=== PATIENT | female | born 1995 | race Caucasian/White ===

== ENCOUNTER 2016-09-05 21:02 | Emergency (ER) | payer MEDICAID, OTHER ==
[~2016-09-05] VITALS: Ht 157.5 cm; Wt 73.1 kg
[~2016-09-05 21:02] MED LIST: LORTA5 PO; TAMS0.4C67 PO; Z.0.BCPILL PO; ZOFR4TAB3 SL
[2016-09-05 21:14] VITALS: BP 117/61; PULSE 88; RESP 16; TEMP 99.3; O2SAT 100
[2016-09-05] MEDS ORDERED: KETOROLAC TROMETHAMINE 30 MG/ML (IVP) VIAL IV PUSH ONE (21:45)
[2016-09-05] MEDS ORDERED: SODIUM CHLORIDE 0.9% FLUSH 10 ML FLUSH IV FLUSH PRN (21:45)
--- NOTE | 2016-09-05 21:50 | PD ---
HPI Chief Complaint: Abdominal Pain Time Seen by Provider: 21:36 Travel History International Travel<30 days: No Contact w/Intl Traveler<30days: No Traveled to known affect area: No History of Present Illness HPI 21-year-old female presents to the emergency department for complaint of one hour of sudden onset right groin pain with radiation into the right lower extremity but also some right flank pain. Patient states that she has felt well all day has had no recent febrile illness respiratory illness urinary symptoms abdominal pain abnormal menses and no recent injury or fall. Patient states that she was lying on the kitchen floor which she typically does was feeling well had gotten up to go the bathroom and upon returning from the bathroom started noticing a pressure like discomfort in the groin area. Patient states his pain has increased in intensity. Patient states she has significant pain with range of motion of the right hip radiating into the right lower extremity and right flank. Patient now reports that she feels like pain as moving over to the left lower extremity. Patient states intermittently she' s experienced some mild tingling. Patient denies any previous injury to the back although parents report that when she was younger she was involved in gymnastics and had had a fall from a pogo stick injuring her buttock region remotely. Patient does not report any fever chills nausea vomiting cough congestion shortness of breath chest pain left flank pain generalized abdominal pain dysuria frequency urgency hematuria or vaginal bleeding vaginal discharge or lower extremity pain or swelling redness pallor or coolness. Patient has taken no medications prior to arrival to the emergency department. Patient reports she was just up out of the ED exam bed to obtain a urine specimen and was able to ambulate to the exam bed. Patient rates pain 8/10 intensity. Remaining still provided some relief movement exacerbates pain. Patient's had no recent respiratory or febrile illness or viral syndrome and has been taking no recent antibiotic. [facility] Past Medical History Narrative Medical ADHD nephrolithiasis; no surgery; no tobacco use; nursing notes reviewed Medical History: Denies Significant Hx ADHD: Yes Diminished Hearing: No Immunizations Current: Yes Tetanus Vaccination: Unknown Influenza Vaccination: No ?: Unknown LMP: 08 23 2016 Past Surgical History Surgical History: No Previous Surgery Social History Alcohol Use: No Tobacco Use: No Substance Use: No Allergies-Medications (Allergen,Severity, Reaction): Coded Allergies: No Known Allergies (Verified , 01/06/15) Reported Meds & Prescriptions Reported Meds & Active Scripts Active Zofran ODT (Ondansetron HCl) 4 Mg Tab 4 Mg SL Q6H PRN FOR NAUSEA/VOMITING Flomax (Tamsulosin HCl) 0.4 Mg Cap 0.4 Mg PO DAILY [place] 5/325 (Hydrocodone/Acetaminophen 5/325) 5 mg/325 mg Tab 1 Tab PO Q6H PRN Reported Control Pills (Miscellaneous Medication) Tab 1 Applic PO DAILY Review of Systems Except as stated in HPI: all other systems reviewed are Neg General / Constitutional: No: Fever, Chills HENT: No: Congestion Cardiovascular: No: Chest Pain or Discomfort, Edema Respiratory: No: Shortness of Breath Gastrointestinal: No: Nausea, Vomiting, Diarrhea, Abdominal Pain Genitourinary: Positive: Flank Pain, No: Dysuria, Discharge, Vaginal Bleeding Musculoskeletal: Positive: Myalgias, Arthralgias, Limited ROM (right hip), Pain (right hip groin RLE), No: Weakness, Cramping, Edema Skin: No Rash Neurologic: No: Weakness, Focal Abnormalities, Coordination Problem, Paresthesia Psychiatric: No: Anxiety Endocrine: No: Heat Intolerance Hematologic/Lymphatic: No: Lymph Node Enlargement Physical Exam Narrative GENERAL: Well-developed well-nourished female in no acute distress no respiratory distress. SKIN: Warm and dry. HEAD: Normocephalic. EYES: No scleral icterus. No injection or drainage. NECK: Supple, trachea midline. No JVD or lymphadenopathy. CARDIOVASCULAR: Regular rate and rhythm without murmurs, gallops, or rubs. RESPIRATORY: Breath sounds equal bilaterally. No accessory muscle use. GASTROINTESTINAL: Abdomen soft, non-tender, nondistended. MUSCULOSKELETAL: No cyanosis, or edema. Bilateral radial and dorsalis pedis pulses 2+ to palpation. Capillary refill brisk and less than 2 seconds per digit. Feet are pink warm and dry no pallor no coolness no erythema no edema. Patient is able to demonstrate full range of motion of the left lower extremity with hip flexion/extension, abduction/adduction, internal/external rotation knee flexion extension and intact range of motion of the ankle with intact plantar flexion and dorsiflexion. Patient with limited range of motion of right hip with decreased hip extension secondary to pain and increased pain with attempted internal/external rotation abduction and abduction not attempted. BACK: Nontender without obvious deformity. No CVA tenderness. No flank tenderness to palpation. Data Data Last Documented VS Vital Signs Date Time Temp Pulse Resp B/P Pulse Ox O2 Delivery O2 Flow Rate FiO2 09/05/16 21:14 99.3 88 16 117/61 100 Room Air Orders Complete Blood Count With Diff (09/05/16 21:39) Comprehensive Metabolic Panel (09/05/16 21:39) Urinalysis - C+S If Indicated (09/05/16 21:39) Iv Access Insert/Monitor (09/05/16 21:39) Ecg Monitoring (09/05/16 21:39) Oximetry (09/05/16 21:39) Sodium Chloride 0.9% Flush (Ns Flush) (09/05/16 21:45) Ed Urine Pregnancytest Poc (09/05/16 21:39) Ketorolac Inj (Toradol Inj) (09/05/16 21:45) Hip, Uni(Ap&Lat) W Ap Pelvis (09/05/16 ) Urine Culture (09/05/16 21:45) Labs Laboratory Tests Test 09/05/16 09/05/16 21:45 22:00 Urine Color YELLOW Urine Turbidity SLIGHT Urine pH 5.5 Urine Specific [place] 1.028 Urine Protein NEG mg/dL Urine Glucose (UA) NEG mg/dL Urine Ketones NEG mg/dL Urine Occult Blood TRACE Urine Nitrite NEG Urine Bilirubin NEG Urine Leukocyte Esterase SMALL Urine RBC 3-5 /hpf Urine WBC 25-49 /hpf Urine WBC Clumps FEW Urine Squamous Epithelial > 8 /hpf Cells Urine Bacteria MOD /hpf Microscopic Urinalysis Comment CULTURE INDICATED White Blood Count 10.4 TH/MM3 Red Blood Count 4.61 MIL/MM3 Hemoglobin 12.5 GM/DL Hematocrit 37.2 % Mean Corpuscular Volume 80.6 FL Mean Corpuscular Hemoglobin 27.2 PG Mean Corpuscular Hemoglobin 33.7 % Concent Red Cell Distribution Width 14.6 % Platelet Count 221 TH/MM3 Mean Platelet Volume 10.2 FL Neutrophils (%) (Auto) 58.4 % Lymphocytes (%) (Auto) 32.5 % Monocytes (%) (Auto) 6.7 % Eosinophils (%) (Auto) 0.8 % Basophils (%) (Auto) 1.6 % Neutrophils # (Auto) 6.0 TH/MM3 Lymphocytes # (Auto) 3.4 TH/MM3 Monocytes # (Auto) 0.7 TH/MM3 Eosinophils # (Auto) 0.1 TH/MM3 Basophils # (Auto) 0.2 TH/MM3 CBC Comment DIFF FINAL Differential Comment Sodium Level 140 MEQ/L Potassium Level 3.6 MEQ/L Chloride Level 106 MEQ/L Carbon Dioxide Level 26.3 MEQ/L Anion Gap 8 MEQ/L Blood Urea Nitrogen 16 MG/DL Creatinine 0.80 MG/DL Estimat Glomerular Filtration 91 ML/MIN Rate Random Glucose 91 MG/DL Calcium Level 9.5 MG/DL Total Bilirubin 0.3 MG/DL Aspartate Amino Transf 20 U/L (AST/SGOT) Alanine Aminotransferase 16 U/L (ALT/SGPT) Alkaline Phosphatase 91 U/L Total Protein 8.5 GM/DL Albumin 4.4 GM/DL MDM Medical Decision Making Medical Screen Exam Complete: Yes Emergency Medical Condition: Yes Medical Record Reviewed: Yes Interpretation(s) poc hcg: negative UA positive white blood cells clumped white blood cells many bacteria cultures indicated Last Impressions Hip and Pelvis X-Ray 09/05/16 0000 Signed Impressions: Service Date/Time: August 21:46 - CONCLUSION: No acute disease. Saul Miranda MD CBC & BMP Diagram 09/05/16 22:00 Vital Signs Date Time Temp Pulse Resp B/P Pulse Ox O2 Delivery O2 Flow Rate FiO2 09/05/16 21:14 99.3 88 16 117/61 100 Room Air Differential Diagnosis Tendinitis, bursitis, piriformis syndrome, lumbar radiculopathy, fracture, sprain, atypical nephrolithiasis, also to consider septic arthritis, ruptured ovarian cyst Narrative Course At 10:45 PM patient is clinically much improved able to demonstrate hip flexion extension and abduction and abduction and internal/external rotation and full range of motion at knee and ankle distally extremity is neurovascular tendon intact negative straight-leg raising. Abdomen soft nontender no guarding or rebound. Patient is identified to have urinary tract infection and possible early pyelonephritis. Suspect patient has right hip strain also consider piriformis syndrome. Patient has had marked improvement with one-time dose of Toradol 30 mg IV patient given first dose of oral antibiotic Cipro 500 mg by mouth and encouraged to follow-up with her primary care provider. Patient also be given prescription for Cipro as well as prescription for Robaxin and weight- based ibuprofen. Patient and family at bedside aware of lab results and imaging study which reveals no acute abnormalities. At this time further imaging is not indicated however patient may require further study at a later date such as CT or MRI should symptoms persist. Patient's questions answered to her satisfaction and patient is stable for outpatient management. Diagnosis Primary Impression: Hip pain, right Additional Impression: UTI (urinary tract infection) Qualified Code: N39.0 - Urinary tract infection without hematuria, site unspecified Referrals: Primary Care Physician call for appointment Patient Instructions: General Instructions Additional Instructions: Complete course of antibiotic as prescribed Take acetaminophen/Tylenol as often as every 4-6 hours as needed for fever 100.4 F or greater or for minor pain May use high-dose ibuprofen 800 mg as often as every 8 hours for pain greater than 5/10 intensity avoid prolonged use for greater than 2-3 days May use muscle relaxant as prescribed as needed use with caution and be aware that it may delay reaction time impaired judgment and increased risk for fall do not drive or handle heavy equipment while taking this medication do not combine with other medications or alcohol and do not climb heights or swelling while on this medication Use ice intermittently to hip area for the first 12-24 hours then apply moist heat Follow-up with primary care provider call office in a.m. to schedule appointment No work times one day Return to the emergency department for any concerns or change in condition Med/Other Pt SpecificInfo: Prescription(s) given Scripts Ciprofloxacin (Cipro)500 Mg [id number] Mg PO BID 7 Days Ref 0 Prov:Gaby Plunkett MD 09/05/16 Ibuprofen 800 Mg [id number] Mg PO Q8H PRN (PAIN GREATER THAN 5) #10 TAB Ref 0 Prov:Gaby Plunkett MD 09/05/16 Methocarbamol (Robaxin)750 Mg [id number] Mg PO Q6HR #12 TAB Ref 0 Prov:Gaby Plunkett MD 09/05/16 Disposition: 01 DISCHARGE HOME Condition: Stable Gaby Plunkett MD Sep 05, 2016 21:49
[2016-09-05 21:51] LABS: BLOOD, URINE TRACE (NEG); GLUCOSE,URINE NEG (NEG); KETONE, URINE NEG (NEG); NITRITE,URINE NEG (NEG); PH, URINE 5.5 (5.0-8.5)
[2016-09-05 21:55] LABS: URINE COLOR YELLOW (YELLW/STRAW)
[2016-09-05 21:56] LABS: BACTERIA, URINE MOD /hpf; COMMENT (UR) CULTURE INDICATED; CULTURE IF INDICATED CULTURE INDICATED; SQUAMOUS EPITHELIAL CELL URINE > 8 /hpf (0-5)
[2016-09-05 22:08] LABS: BASOPHIL # 0.2 TH/MM3 (0-0.2); BASOPHIL % 1.6 % (0.0-2.0); EOSINOPHIL # 0.1 TH/MM3 (0-0.4); EOSINOPHIL % 0.8 % (0.0-4.0); HEMATOCRIT 37.2 % (35.0-46.0); HEMO FLAGS DIFF FINAL; LYMPH % 32.5 % (9.0-44.0); LYMPHOCYTE # 3.4 TH/MM3 (1.0-4.8); MEAN CELL VOLUME 80.6 FL (80.0-100.0); MEAN CORPUSCULAR HEMOGLOBIN 27.2 PG (27.0-34.0); MEAN CORPUSCULAR HGB CONC 33.7 % (32.0-36.0); MONO % 6.7 % (0.0-8.0); NEUT % 58.4 % (16.0-70.0); PLATELET COUNT 221 TH/MM3 (150-450); RED BLOOD COUNT 4.61 MIL/MM3 (4.00-5.30); RED CELL DISTRIBUTION WIDTH 14.6 % (11.6-17.2); WHITE BLOOD COUNT 10.4 TH/MM3 (4.0-11.0)
[2016-09-05 22:20] LABS: CHLORIDE 106 MEQ/L (98-107); POTASSIUM 3.6 MEQ/L (3.5-5.1); SODIUM (NA) 140 MEQ/L (136-145)
--- NOTE | 2016-09-05 22:21 | RADHPO ---
EXAM DATE/TIME: 09/05/2016 21:46 [facility] COMPARISON: No previous studies available for comparison. INDICATIONS : Complains of right hip pain, after getting up off floor after playing with her dog. MEDICAL HISTORY : None. SURGICAL HISTORY : None. ENCOUNTER: Initial ACUITY: 1 day PAIN SCORE: 10/10 LOCATION: Right hip FINDINGS: Examination of the right hip was performed with AP Pelvis. The primary and secondary trabecular sally oliverio of the femoral neck is intact. The hip joint is of normal width without significant sclerosis or bony hypertrophy. The acetabulum is grossly intact. CONCLUSION: No acute disease. Saul Miranda MD on September 05, 2016 at 22:19 Board Certified Radiologist. This report was verified electronically.
[2016-09-05 22:23] LABS: ANION GAP 8 MEQ/L (5-15); BICARBONATE 26.3 MEQ/L (21.0-32.0); BLOOD UREA NITROGEN 16 MG/DL (7-18)
[2016-09-05 22:26] LABS: ALT (GPT) 16 U/L (9-42); AST (GOT) 20 U/L (16-38)
[2016-09-05 22:27] LABS: GLOMERULAR FILTRATION RATE 91 ML/MIN (>89)
[2016-09-05 22:28] LABS: TOTAL BILIRUBIN ADULT 0.3 MG/DL (0.2-1.0)
[2016-09-05 22:29] LABS: ALKALINE PHOSPHATASE 91 U/L (45-117)
[2016-09-05] MEDS ORDERED: CIPROFLOXACIN 500 MG TAB PO ONE (22:45)
[2016-09-05] MEDS ORDERED: IBUP800T23 PO (22:47)
[2016-09-05] MEDS ORDERED: ROBA750T PO (22:47)
[2016-09-05] MEDS ORDERED: CIPR-9 PO (22:47)
[2016-09-05 22:54] VITALS: RESP 18
== END 2016-09-05 22:56 | disposition home or self-care (01) ==
LOC: PHEFT 21:02
DX: M25.551 Pain in right hip (principal); N39.0 Urinary tract infection, site not specified; B96.89 Other specified bacterial agents as the cause of diseases classified elsewhere
CPT/HCPCS: 73502; 80053; 81001; 84703; 85025; 87086; 96374; 99284; J1885

== ENCOUNTER 2016-10-07 05:43 | Emergency (ER) | payer OTHER ==
[~2016-10-07] VITALS: Ht 157.5 cm; Wt 76.0 kg
[~2016-10-07 05:43] MED LIST changes: +CIPR-9 PO; +IBUP800T23 PO; +ROBA750T PO
[2016-10-07 05:55] VITALS: BP 119/78; PULSE 70; RESP 18; TEMP 98.4; O2SAT 100
[2016-10-07] MEDS ORDERED: SODIUM CHLOR 0.9% 1000 ML INJ 1,000 ML IV SCH (06:01)
--- NOTE | 2016-10-07 06:08 | PD ---
HPI Chief Complaint: Abdominal Pain Time Seen by Provider: 05:57 Travel History International Travel<30 days: No Contact w/Intl Traveler<30days: No History of Present Illness HPI 21yo F with no PMH presents to the ED with c/o epigastric/RUQ abdominal pain that started about an hour ago. Associated with nausea. States pain is constant, nonradiating and not relieved with ibuprofen. Denies any fever, chest pain, sob, vomiting, urinary complaints, vaginal bleeding or discharge. LMP 09/2016. Pt states she has had similar pain 2 times before but never seek medical attention. Denies any surgery. Denies history of cholelithiasis. PFSH Past Medical History ADHD: Yes Diminished Hearing: No Immunizations Current: Yes Social History Alcohol Use: No Tobacco Use: No Substance Use: No Allergies-Medications (Allergen,Severity, Reaction): Coded Allergies: No Known Allergies (Verified , 10/07/16) Reported Meds & Prescriptions Reported Meds & Active Scripts Active No Active Prescriptions or Reported Medications Review of Systems Except as stated in HPI: all other systems reviewed are Neg Physical Exam Narrative GENERAL: 21yo F in moderate distress. SKIN: Focused skin assessment warm/dry. HEAD: Atraumatic. Normocephalic. NECK: Trachea midline. No JVD. CARDIOVASCULAR: Regular rate and rhythm. No murmur appreciated. RESPIRATORY: No accessory muscle use. Clear to auscultation. Breath sounds equal bilaterally. GASTROINTESTINAL: Abdomen soft, +TTP epigastric region. +TTP RUQ. +Espinoza's sign. No rebound tenderness or guarding. BACK: No CVA tenderness bilaterally. MUSCULOSKELETAL: No obvious deformities. No clubbing. No cyanosis. No edema. NEUROLOGICAL: Awake and alert. No obvious cranial nerve deficits. Motor grossly within normal limits. Normal speech. PSYCHIATRIC: Appropriate mood and affect; insight and judgment normal. Data Data Last Documented VS Vital Signs Date Time Temp Pulse Resp B/P Pulse Ox O2 Delivery O2 Flow Rate FiO2 10/07/16 09:37 82 18 108/52 97 Room Air 10/07/16 06:09 98.4 Orders Beta Hcg (Quant/Titer) (10/07/16 06:01) Complete Blood Count With Diff (10/07/16 06:01) Comprehensive Metabolic Panel (10/07/16 06:01) Lipase (10/07/16 06:01) Prothrombin Time / Inr (Pt) (10/07/16 06:01) Act Partial Throm Time (Ptt) (10/07/16 06:01) Urinalysis - C+S If Indicated (10/07/16 06:01) Us Abdomen Gallbladder (10/07/16 ) Iv Access Insert/Monitor (10/07/16 06:01) Ecg Monitoring (10/07/16 06:01) Oximetry (10/07/16 06:01) Morphine Inj (Morphine Inj) (10/07/16 06:15) Ondansetron Inj (Zofran Inj) (10/07/16 06:15) Sodium Chlor 0.9% 1000 Ml Inj (Ns 1000 M (10/07/16 06:01) Sodium Chloride 0.9% Flush (Ns Flush) (10/07/16 06:15) Ed Urine Pregnancytest Poc (10/07/16 06:01) Urine Culture (10/07/16 07:05) Levofloxacin (Levaquin) (10/07/16 09:30) Oxycodone-Acetamin 5-325 Mg (Percocet (10/07/16 09:30) Labs Laboratory Tests Test 10/07/16 10/07/16 06:10 07:05 White Blood Count 7.5 TH/MM3 Red Blood Count 4.55 MIL/MM3 Hemoglobin 12.6 GM/DL Hematocrit 37.8 % Mean Corpuscular Volume 83.1 FL Mean Corpuscular Hemoglobin 27.8 PG Mean Corpuscular Hemoglobin 33.4 % Concent Red Cell Distribution Width 14.2 % Platelet Count 185 TH/MM3 Mean Platelet Volume 10.6 FL Neutrophils (%) (Auto) 49.1 % Lymphocytes (%) (Auto) 42.4 % Monocytes (%) (Auto) 6.7 % Eosinophils (%) (Auto) 1.3 % Basophils (%) (Auto) 0.5 % Neutrophils # (Auto) 3.7 TH/MM3 Lymphocytes # (Auto) 3.2 TH/MM3 Monocytes # (Auto) 0.5 TH/MM3 Eosinophils # (Auto) 0.1 TH/MM3 Basophils # (Auto) 0.0 TH/MM3 CBC Comment DIFF FINAL Differential Comment Prothrombin Time 10.8 SEC Prothromb Time International 1.0 RATIO Ratio Activated Partial 22.5 SEC Thromboplast Time Sodium Level 145 MEQ/L Potassium Level 3.2 MEQ/L Chloride Level 106 MEQ/L Carbon Dioxide Level 29.7 MEQ/L Anion Gap 9 MEQ/L Blood Urea Nitrogen 12 MG/DL Creatinine 0.76 MG/DL Estimat Glomerular Filtration 97 ML/MIN Rate Random Glucose 101 MG/DL Calcium Level 8.9 MG/DL Total Bilirubin 0.3 MG/DL Aspartate Amino Transf 13 U/L (AST/SGOT) Alanine Aminotransferase 15 U/L (ALT/SGPT) Alkaline Phosphatase 105 U/L Total Protein 7.7 GM/DL Albumin 3.9 GM/DL Lipase 347 U/L Human Chorionic Gonadotropin, LESS THAN 1 Quant MIU/ML Urine Collection Type CLEAN CATCH Urine Color YELLOW Urine Turbidity SLIGHTY CLOUDY Urine pH 6.0 Urine Specific [place] 1.022 Urine Protein TRACE mg/dL Urine Glucose (UA) NEG mg/dL Urine Ketones TRACE mg/dL Urine Occult Blood TRACE Urine Nitrite NEG Urine Bilirubin NEG Urine Leukocyte Esterase SMALL Urine RBC 0-3 /hpf Urine WBC 9-14 /hpf Urine Squamous Epithelial 6-8 /hpf Cells Urine Amorphous Sediment FEW Microscopic Urinalysis Comment CULTURE INDICATED MDM Medical Decision Making Medical Screen Exam Complete: Yes Emergency Medical Condition: Yes Differential Diagnosis Acute cholecystitis vs. Biliary colic vs. pancreatitis vs. gastritis Narrative Course 21yo F with RUQ pain that started an hour ago. Pt is writhing in bed and has not eaten so unsure if it makes the pain worst. Had similar pain before and usually comes at night. Will obtain labs, check , get UA and US gallbladder. Will given IVF NS, zofran, and morphine. Pt reevaluated after medication and states pain is now a 5 out of 10. Pt still operator on palpation in RUQ. Sign out to next team to follow up labs, UA, and US gallbladder. Diagnosis Primary Impression: Cholelithiasis Qualified Code: K80.20 - Calculus of gallbladder without cholecystitis without obstruction Scripts No Active Prescriptions or Reported Meds Mai Abdi DO October 07, 2016 06:08
[2016-10-07 06:09] VITALS: BP 119/78; PULSE 70; RESP 18; TEMP 98.4; O2SAT 100
[2016-10-07 06:10] VITALS: O2SAT 100
[2016-10-07] MEDS ORDERED: MORPHINE SULFATE 4 MG/ML INJ IV PUSH ONE (06:15)
[2016-10-07] MEDS ORDERED: ONDANSETRON HCL 4 MG/2 ML VIAL IVP ONE (06:15)
[2016-10-07] MEDS ORDERED: SODIUM CHLORIDE 0.9% FLUSH 10 ML FLUSH IV FLUSH PRN (06:15)
[2016-10-07 06:45] LABS: AUTOMATED NEUTROPHIL # 3.7 TH/MM3 (1.8-7.7); BASOPHIL % 0.5 % (0.0-2.0); EOSINOPHIL # 0.1 TH/MM3 (0-0.4); EOSINOPHIL % 1.3 % (0.0-4.0); HEMATOCRIT 37.8 % (35.0-46.0); HEMO FLAGS DIFF FINAL; LYMPH % 42.4 % (9.0-44.0); LYMPHOCYTE # 3.2 TH/MM3 (1.0-4.8); MEAN CELL VOLUME 83.1 FL (80.0-100.0); MEAN CORPUSCULAR HEMOGLOBIN 27.8 PG (27.0-34.0); MEAN CORPUSCULAR HGB CONC 33.4 % (32.0-36.0); MONO % 6.7 % (0.0-8.0); NEUT % 49.1 % (16.0-70.0); PLATELET COUNT 185 TH/MM3 (150-450); RED BLOOD COUNT 4.55 MIL/MM3 (4.00-5.30); RED CELL DISTRIBUTION WIDTH 14.2 % (11.6-17.2); WHITE BLOOD COUNT 7.5 TH/MM3 (4.0-11.0)
[2016-10-07 06:56] LABS: CHLORIDE 106 MEQ/L (98-107); POTASSIUM 3.2 MEQ/L (3.5-5.1); SODIUM (NA) 145 MEQ/L (136-145)
[2016-10-07 06:59] LABS: APTT (PATIENT) 22.5 SEC (24.3-30.1); PROTHROMBIN TIME - PATIENT 10.8 SEC (9.8-11.6)
[2016-10-07 07:01] LABS: ANION GAP 9 MEQ/L (5-15); BICARBONATE 29.7 MEQ/L (21.0-32.0); BLOOD UREA NITROGEN 12 MG/DL (7-18)
[2016-10-07 07:04] LABS: ALT (GPT) 15 U/L (9-42); AST (GOT) 13 U/L (16-38); GLOMERULAR FILTRATION RATE 97 ML/MIN (>89)
[2016-10-07 07:06] LABS: TOTAL BILIRUBIN ADULT 0.3 MG/DL (0.2-1.0)
[2016-10-07 07:07] LABS: ALKALINE PHOSPHATASE 105 U/L (45-117)
[2016-10-07 07:09] LABS: BETA HCG QUANT LESS THAN 1 MIU/ML (0-5)
[2016-10-07 07:25] LABS: BLOOD, URINE TRACE (NEG); GLUCOSE,URINE NEG (NEG); KETONE, URINE TRACE mg/dL (NEG); NITRITE,URINE NEG (NEG)
[2016-10-07 07:27] VITALS: BP 99/40; PULSE 60; RESP 18; O2SAT 99
[2016-10-07 07:32] LABS: METHOD OF COLLECTION CLEAN CATCH; URINE COLOR YELLOW (YELLW/STRAW)
[2016-10-07 07:33] LABS: COMMENT (UR) CULTURE INDICATED; CULTURE IF INDICATED CULTURE INDICATED; RBC, URINE 0-3 /hpf (0-3)
--- NOTE | 2016-10-07 09:06 | RADHPO ---
EXAM DATE/TIME: 10/07/2016 07:47 [facility] COMPARISON: No previous studies available for comparison. INDICATIONS : Right upper quadrant pain. MEDICAL HISTORY : Right upper quadrant pain. SURGICAL HISTORY : None. ENCOUNTER: Initial ACUITY: 1 day PAIN SCORE: 4/10 LOCATION: Right upper quadrant MEASUREMENTS: LIVER: 17.5 cm length COMMON DUCT: 5 mm RIGHT KIDNEY: 10.5 x 5.3 x 5.8 cm FINDINGS: LIVER: Normal echotexture without focal lesion or ductal dilatation. Hepatopedal flow within the portal vein . COMMON DUCT: No intraluminal mass or stone visualized. GALLBLADDER: There are multiple calcified gallstones within the neck of the gallbladder. Each measures approximate ly 1.5 cm in diameter. Several state within the neck despite left lateral decubitus positioning. No d istention of the gallbladder. No pericholecystic fluid. The gallbladder wall is at the upper range of normal in terms of thickness. PANCREAS: Totally obscured by bowel gas. RIGHT KIDNEY: No evidence of hydronephrosis, stone, or mass. CONCLUSION: Cholelithiasis with a stone remaining in the neck of the gallbladder despite left lateral decubitus p ositioning. The gallbladder wall is at the upper range of normal in terms of thickness. I see no doc cholecystic fluid or significant distention of the gallbladder. Kieran Martinez Jr., MD on October 07, 2016 at 8:56 Board Certified Radiologist. This report was verified electronically.
[2016-10-07] MEDS ORDERED: oxyCODONE/ACETAMINOPHEN 5 MG/325 MG TAB PO ONE (09:30)
[2016-10-07] MEDS ORDERED: LEVOFLOXACIN 500 MG TAB PO ONE (09:30)
[2016-10-07] MEDS ORDERED: LEVA500T PO (09:34)
[2016-10-07] MEDS ORDERED: PERC5TAB12 PO (09:34)
--- NOTE | 2016-10-07 09:35 | PD ---
Physical Exam Narrative GENERAL: Well-nourished, well-developed patient. SKIN: Warm and dry. HEAD: Normocephalic and atraumatic. EYES: No injection or drainage. ENT: No nasal drainage noted. NECK: Supple, trachea midline. CARDIOVASCULAR: Regular rate and rhythm RESPIRATORY: no increased effort. No accessory muscle use. GASTROINTESTINAL: Abdomen soft, ttp ruq, nondistended. no rebound EXTREMITIES: No edema. NEUROLOGICAL: Awake and alert. Motor and sensory grossly within normal limits. Normal speech. Data Data Last Documented VS Vital Signs Date Time Temp Pulse Resp B/P Pulse Ox O2 Delivery O2 Flow Rate FiO2 10/07/16 09:37 82 18 108/52 97 Room Air 10/07/16 06:09 98.4 Orders Beta Hcg (Quant/Titer) (10/07/16 06:01) Complete Blood Count With Diff (10/07/16 06:01) Comprehensive Metabolic Panel (10/07/16 06:01) Lipase (10/07/16 06:01) Prothrombin Time / Inr (Pt) (10/07/16 06:01) Act Partial Throm Time (Ptt) (10/07/16 06:01) Urinalysis - C+S If Indicated (10/07/16 06:01) Us Abdomen Gallbladder (10/07/16 ) Iv Access Insert/Monitor (10/07/16 06:01) Ecg Monitoring (10/07/16 06:01) Oximetry (10/07/16 06:01) Morphine Inj (Morphine Inj) (10/07/16 06:15) Ondansetron Inj (Zofran Inj) (10/07/16 06:15) Sodium Chlor 0.9% 1000 Ml Inj (Ns 1000 M (10/07/16 06:01) Sodium Chloride 0.9% Flush (Ns Flush) (10/07/16 06:15) Ed Urine Pregnancytest Poc (10/07/16 06:01) Urine Culture (10/07/16 07:05) Levofloxacin (Levaquin) (10/07/16 09:30) Oxycodone-Acetamin 5-325 Mg (Percocet (10/07/16 09:30) Labs Laboratory Tests Test 10/07/16 10/07/16 06:10 07:05 White Blood Count 7.5 TH/MM3 Red Blood Count 4.55 MIL/MM3 Hemoglobin 12.6 GM/DL Hematocrit 37.8 % Mean Corpuscular Volume 83.1 FL Mean Corpuscular Hemoglobin 27.8 PG Mean Corpuscular Hemoglobin 33.4 % Concent Red Cell Distribution Width 14.2 % Platelet Count 185 TH/MM3 Mean Platelet Volume 10.6 FL Neutrophils (%) (Auto) 49.1 % Lymphocytes (%) (Auto) 42.4 % Monocytes (%) (Auto) 6.7 % Eosinophils (%) (Auto) 1.3 % Basophils (%) (Auto) 0.5 % Neutrophils # (Auto) 3.7 TH/MM3 Lymphocytes # (Auto) 3.2 TH/MM3 Monocytes # (Auto) 0.5 TH/MM3 Eosinophils # (Auto) 0.1 TH/MM3 Basophils # (Auto) 0.0 TH/MM3 CBC Comment DIFF FINAL Differential Comment Prothrombin Time 10.8 SEC Prothromb Time International 1.0 RATIO Ratio Activated Partial 22.5 SEC Thromboplast Time Sodium Level 145 MEQ/L Potassium Level 3.2 MEQ/L Chloride Level 106 MEQ/L Carbon Dioxide Level 29.7 MEQ/L Anion Gap 9 MEQ/L Blood Urea Nitrogen 12 MG/DL Creatinine 0.76 MG/DL Estimat Glomerular Filtration 97 ML/MIN Rate Random Glucose 101 MG/DL Calcium Level 8.9 MG/DL Total Bilirubin 0.3 MG/DL Aspartate Amino Transf 13 U/L (AST/SGOT) Alanine Aminotransferase 15 U/L (ALT/SGPT) Alkaline Phosphatase 105 U/L Total Protein 7.7 GM/DL Albumin 3.9 GM/DL Lipase 347 U/L Human Chorionic Gonadotropin, LESS THAN 1 Quant MIU/ML Urine Collection Type CLEAN CATCH Urine Color YELLOW Urine Turbidity SLIGHTY CLOUDY Urine pH 6.0 Urine Specific [place] 1.022 Urine Protein TRACE mg/dL Urine Glucose (UA) NEG mg/dL Urine Ketones TRACE mg/dL Urine Occult Blood TRACE Urine Nitrite NEG Urine Bilirubin NEG Urine Leukocyte Esterase SMALL Urine RBC 0-3 /hpf Urine WBC 9-14 /hpf Urine Squamous Epithelial 6-8 /hpf Cells Urine Amorphous Sediment FEW Microscopic Urinalysis Comment CULTURE INDICATED MDM Supervised Visit with JACQUIE: No Interpretation(s) CBC & BMP Diagram 10/07/16 06:10 Last 24 hours Impressions Gall Bladder Ultrasound 10/07/16 0000 Signed Impressions: Service Date/Time: Friday, October 07, 2016 07:47 - CONCLUSION: Cholelithiasis with a stone remaining in the neck of the gallbladder despite left lateral decubitus positioning. The gallbladder wall is at the upper range of normal in terms of thickness. I see no pericholecystic fluid or significant distention of the gallbladder. Kieran Martinez Jr., MD Narrative Course Signed over to me to follow labs and ultrasound and reevaluate Will discuss with Gen. surgery ultrasound finding. Patient feeling better after morphine Patient agrees to go straight to general surgeons office and will be given Levaquin and Percocet here and prescriptions for these as an outpatient. Patient denies any new complaints, all questions answered. Patient knows that follow up is incumbent on them and to return to the emergency room immediately if new or worsening symptoms develop. Patient given strict return precautions, vitals reviewed and are normal, agrees to further workup as an outpatient. Physician Communication Physician Communication dr benjamin states to place on levaquin and send straight to his office for evaluation today Diagnosis Primary Impression: Cholelithiasis Qualified Code: K80.20 - Calculus of gallbladder without cholecystitis without obstruction Referrals: Hernán Benjamin MD go straight to office now Patient Instructions: General Instructions Additional Instruction: go straight to dr benjamin's office, percocet as needed for severe pain, return as needed Med/Other Pt SpecificInfo: Prescription(s) given Scripts Levofloxacin (Levaquin)500 Mg [id number] Mg PO DAILY 7 Days Ref 0 Prov:Melita Leach MD 10/07/16 Oxycodone-Acetaminophen (Percocet)5-325 mg Tab1 Tab PO Q6H PRN (PAIN) #15 TAB Prov:Melita Leach MD 10/07/16 Disposition: 01 DISCHARGE HOME Condition: Stable Melita Leach MD October 07, 2016 09:35
[2016-10-07 09:37] VITALS: BP 108/52; PULSE 82; RESP 18; O2SAT 97
== END 2016-10-07 10:09 | disposition home or self-care (01) ==
LOC: PHED 05:43
DX: K80.20 Calculus of gallbladder without cholecystitis without obstruction (principal); N39.0 Urinary tract infection, site not specified; B96.89 Other specified bacterial agents as the cause of diseases classified elsewhere
CPT/HCPCS: 76705; 80053; 81001; 83690; 84702; 84703; 85025; 85610; 85730; 87086; 96361; 96374; 96375; 99284; J2270; J2405; J7030

== ENCOUNTER → 2016-10-08 | Day surgery (SDC) | payer OTHER ==
[~2016-10-08] VITALS: Ht 157.5 cm; Wt 72.9 kg
[~2016-10-08] MED LIST changes: +*ONDANSETRON 4 MG VIAL PERIprocedural Use ONLY ONE; +*morphine SULFATE 8 MG/ML PERIprocedure ONLY ONE; +ACETAMINOPHEN 1000 MG/100 ML VIAL IV SCH; +BUPIVACAINE/EPINEPHRINE 0.5% 50 ML VIAL ONE; +CHLORHEXIDINE GLUCONATE 2 % 1 PACK (2 CLOTHS) TOPICAL PRN; -CIPR-9 PO; +DEXAMETHASONE SOD PHOS 4 MG/ML VIAL ONE; +FAMOTIDINE 20 MG/2 ML VIAL ONE; -IBUP800T23 PO; +INSULIN HUMAN REGULAR 1,000 UNITS/10 ML VIAL SQ PRN; +KETOROLAC TROMETHAMINE 30 MG/ML (IVP) VIAL IV PUSH ONE; +KETOROLAC TROMETHAMINE 60 MG/2 ML (IM) VIAL IM ONE; +LACTATED RINGER'S 1000 ML IV PRN; +LEVA500T PO; -LORTA5 PO; +METOPROLOL TARTRATE 25 MG TAB PO PRN; +MIDAZOLAM HCL 2 MG/2 ML VIAL ONE; +MORPHINE SULFATE 4 MG/ML INJ IV PRN; +NEOSTIGMINE 3 MG/3 ML SYR IV ONE; +ONDANSETRON HCL 4 MG/2 ML VIAL IV PRN; +ONDANSETRON HCL 4 MG/2 ML VIAL IV PUSH ONE; +PERC5TAB12 PO; +POVIDONE IODINE 5% (ANTISEPSIS KIT) 4 APPLICATIONS EACH NARE PRN; +PROPOFOL 200 MG/20 ML AMP IV ONE; -ROBA750T PO; +SODIUM CHLORID 0.9% 500 ML IV PRN; +SODIUM CHLORIDE FLUSH BID IV FLUSH SCH; +SODIUM CHLORIDE FLUSH PRN IV FLUSH; -TAMS0.4C67 PO; -Z.0.BCPILL PO; -ZOFR4TAB3 SL; +ceFAZolin 2 GM PREMIX 50 ML IV SCH; +fentaNYL CITRATE 250 MCG/5 ML AMP ONE; +oxyCODONE/ACETAMINOPHEN 5 MG/325 MG TAB PO PRN
[2016-10-08 10:20] VITALS: BP 117/73; PULSE 71; RESP 16; TEMP 98.5; O2SAT 100
--- NOTE | 2016-10-08 13:26 | PD.OP ---
cc: Hernán Grande MD Operative Report Date of Surgery: October 08, 2016 Preoperative Diagnosis: Chronic cholecystitis and cholelithiasis Postoperative Diagnosis: Chronic cholecystitis and cholelithiasis Procedure: Laparoscopic cholecystectomy Anesthesia: Gen. endotracheal Surgeon: Hernán Grande Medical Numerical Control Operator(s): None Operation and Findings: Operative findings: The patient was found to have a moderately diseased appearing gallbladder with thick ramachandran and large stones. The cystic duct and common bile ducts were seen to be of normal caliber. No other abnormalities were noted. Operative procedure: The patient was brought to the operating room and after satisfactory general endotracheal anesthesia obtained, the abdomen was prepped and draped in the usual sterile fashion. 0.5% Marcaine with epinephrine was used to infiltrate the skin for local anesthesia. A small incision was made above the umbilicus and under direct visualization the perineal cavity was entered with a 5 mm trocar. The abdomen was then insufflated to 15 mmHg using carbon dioxide after which the camera was reinserted and visceral injury inspected for with none being identified. The patient was noted to have a small amount of very thin-appearing blood along the right colic gutter near the pelvis but was not related to the entrance laparoscopically. Under direct visualization a 5 port and a 12 port were placed in the upper midline. The liver was retracted superiorly and the gallbladder grasped and retracted superiorly over the right lobe of the liver after which Fields's pouch was grasped and retracted inferiorly and laterally, placing tension on the hepatoduodenal ligament. The cystic duct and cystic artery were dissected free from dense eschar. Once the critical view had been obtained, the cystic artery was divided near structures with the gallbladder using the harmonic scalpel. The cystic duct was then dissected down to its junction with the common bile duct which was clearly visualized. The cystic duct was controlled with several hemoclips after which it was divided near its junction with the gallbladder using the Harmonic scalpel. The gallbladder was then dissected free from the liver bed using the harmonic scalpel. The gallbladder was placed within an Endo Catch bag and brought through the upper midline incision where it was emptied of its bile and stones and was then withdrawn without problem. The trochars reinserted and the liver bed inspected and found to be hemostatic. The cystic duct cystic artery stumps were both seen to be intact with no leakage of bile or blood. Patient was then placed into the Trendelenburg position and inspection of the pelvis February of reveal any bleeding or evidence of visceral injury. After repositioning the patient to the flat position, the carbon dioxide was vented as completely as possible the atmosphere after which the trochars were removed and the 12 mm fascial defect closed with interrupted 0 Vicryl sutures skin closed with interrupted 4-0 PDS subcutaneous stitches. Steri-Strips were applied and the patient was then awakened and taken from the operating room, in satisfactory condition, having tolerated the procedure without problem. Estimated blood loss was less than 10 mL's. The instrument, sponge, needle counts were reported as being correct 2 at the end of procedure. Hernán Grande MD October 08, 2016 13:26
[2016-10-08 15:00] VITALS: BP 107/64; PULSE 63; RESP 18; TEMP 98; O2SAT 98
== END | disposition home or self-care (01) ==
LOC: HSDC 09:32
PROVIDERS: ATTEND Surgery
DX: K80.10 Calculus of gallbladder with chronic cholecystitis without obstruction (principal)
CPT/HCPCS: 00790; 47562; 88304; J0131; J0690; J1100; J1885; J2250; J2270; J2405; J2710; J3010; J7120